=== PATIENT | female | born 1970 | race Caucasian/White ===

== ENCOUNTER → 2018-12-02 | Outpatient (REF) | payer BC | LOC: M LAB LCGH 12:04 | PROVIDERS: ATTEND Obstetrics & Gynecology Obstetrics | DX: Z12.4 Encounter for screening for malignant neoplasm of cervix (principal) ==

== ENCOUNTER 2022-06-05 09:55 | Emergency (ER) | payer BC, OTHER ==
[~2022-06-05] VITALS: Ht 160 cm; Wt 79.5 kg
[2022-06-05] MEDS ORDERED: advil (10:18)
[2022-06-05] MEDS ORDERED: DICL1GEL3 TOP (10:18)
[2022-06-05] MEDS ORDERED: KETOROLAC 30 MG/ML 1ML VIAL IV ONE (14:05)
[2022-06-05 15:09] LABS: BASO # 0.1 10^3/uL (0.0-0.2); BASO % 0.4 % (0.0-1.0); EOS # 0.2 10^3/uL (0.0-0.5); EOS % 1.5 % (0.0-3.0); HEMATOCRIT 40.9 % (36.0-47.0); HEMOGLOBIN 12.9 g/dl (12.0-15.5); LYMPH # 2.2 10^3/uL (1.5-5.0); LYMPH % 18.5 % (24.0-44.0); MEAN CORPUSCULAR HEMOGLOBIN 27.9 pg (27.0-33.0); MEAN CORPUSCULAR HGB CONC 31.5 g/dl (32.0-36.5); MEAN CORPUSCULAR VOLUME 88.3 fl (80.0-96.0); MONO # 0.8 10^3/uL (0.0-0.8); NEUTROPHILS # 8.4 10^3/uL (1.5-8.5); NEUTROPHILS % 72.1 % (36.0-66.0); PLATELET COUNT, AUTOMATED 303 10^3/uL (150-450); RED BLOOD COUNT 4.63 10^6/uL (4.00-5.40); WHITE BLOOD COUNT 11.7 10^3/uL (4.0-10.0)
[2022-06-05] MEDS ORDERED: ISOVUE-370 76% 100ML VIAL As Ordered ONE (15:32)
[2022-06-05] MEDS ORDERED: CYCL-707 PO (16:42)
[2022-06-05] MEDS ORDERED: NAPR-837 PO (16:42)
[2022-06-05] MEDS ORDERED: AMOX875T2 PO (16:42)
[2022-06-05 17:07] VITALS: BP 132/69
== END 2022-06-05 17:06 | disposition home or self-care (01) ==
LOC: M ED 09:55
DX: M54.50 Low back pain, unspecified (principal); R20.2 Paresthesia of skin; W00.0XXA Fall on same level due to ice and snow, initial encounter; K11.20 Sialoadenitis, unspecified; Z79.899 Other long term (current) drug therapy
CPT/HCPCS: 70491; 80047; 85025; 96374; 99284; J1885

== ENCOUNTER → 2023-11-28 | Outpatient (REF) | payer BC ==
[~2023-11-28] MED LIST: AMOX875T2 PO; CYCL-707 PO; DICL100G10 TOP; NAPR-837 PO; advil
[2023-11-30 12:00] LABS: HPV APTIMA Not Detected (Not Detected)
== END ==
LOC: M SFHCWAGY 15:32
PROVIDERS: ATTEND Nurse Practitioner Family
DX: Z12.4 Encounter for screening for malignant neoplasm of cervix (principal)
CPT/HCPCS: 87624; G0123

== ENCOUNTER → 2023-12-03 | Outpatient (CLI) | payer BC | LOC: M WHC 10:14 | PROVIDERS: ATTEND Nurse Practitioner Family | DX: Z12.31 Encounter for screening mammogram for malignant neoplasm of breast (principal) ==

== ENCOUNTER → 2023-12-18 | Outpatient (CLI) | payer BC | LOC: M WHC 12:42 | PROVIDERS: ATTEND Nurse Practitioner Family | DX: Z12.31 Encounter for screening mammogram for malignant neoplasm of breast (principal) ==

== ENCOUNTER 2024-09-01 07:06 | Day surgery (SDC) | payer BC ==
[~2024-09-01] VITALS: Ht 160 cm; Wt 91.4 kg
[~2024-09-01 07:06] MED LIST changes: +CLAR10TA7 PO; +ESTR1DIS5 TOP; +PROG1CAP8 PO
[2024-09-01] MEDS ORDERED: propofoL 200 MG/20 ML VIAL As Ordered ONE (08:41)
[2024-09-01] MEDS ORDERED: LIDOCAINE 2% 100MG/5ML SDV (FOR ANES.) As Ordered ONE (08:41)
[2024-09-01 09:06] VITALS: TEMP 97.5
[2024-09-01 09:28] VITALS: BP 128/60; O2SAT 100
== END 2024-09-01 09:39 | disposition home or self-care (01) ==
LOC: M OPP 07:06
PROVIDERS: ATTEND Internal Medicine Gastroenterology
DX: Z12.11 Encounter for screening for malignant neoplasm of colon (principal); Z12.12 Encounter for screening for malignant neoplasm of rectum; K63.5 Polyp of colon; K57.30 Diverticulosis of large intestine without perforation or abscess without bleeding; K64.0 First degree hemorrhoids; Z79.899 Other long term (current) drug therapy; Z79.3 Long term (current) use of hormonal contraceptives; Z79.890 Hormone replacement therapy; Z88.2 Allergy status to sulfonamides

== ENCOUNTER → 2024-12-18 | Outpatient (REF) | payer BC | LOC: M LAB REF 12:22 | PROVIDERS: ATTEND Obstetrics & Gynecology Obstetrics | DX: R19.7 Diarrhea, unspecified (principal) ==

== ENCOUNTER 2024-12-30 16:43 | Emergency (ER) | payer BC ==
[~2024-12-30] VITALS: Ht 160 cm; Wt 88.8 kg
[2024-12-30 17:45] LABS: BASO # 0.0 10^3/uL (0.0-0.2); BASO % 0.4 % (0.0-1.0); EOS # 0.3 10^3/uL (0.0-0.5); EOS % 2.9 % (0.0-3.0); LYMPH # 2.4 10^3/uL (1.5-5.0); LYMPH % 21.0 % (24.0-44.0); MONO # 0.7 10^3/uL (0.0-0.8); MONO % 6.0 % (2.0-8.0); NEUTROPHILS # 7.8 10^3/uL (1.5-8.5); NEUTROPHILS % 69.2 % (36.0-66.0); PLATELET COUNT, AUTOMATED 280 10^3/uL (150-450)
[2024-12-30 18:00] LABS: INR 0.9
[2024-12-30 18:05] LABS: ALT/SGPT 21 U/L (7.0-40); AST/SGOT 25 U/L (<34); CALCIUM LEVEL 9.3 MG/DL (8.5-10.1); CARBON DIOXIDE LEVEL 28 MMOL/L (20-31); CHLORIDE LEVEL 103 MMOL/L (98-107); CK-MB VALUE MASS 1.3 NG/ML (<3.6); CREATININE FOR GFR 0.63 MG/DL (0.55-1.30); GLOMERULAR FILTRATION RATE > 90.0 (>51); POTASSIUM SERUM 3.8 MMOL/L (3.5-5.1); SODIUM LEVEL 142 MMOL/L (136-145)
[2024-12-30 18:06] LABS: FREE T4 0.99 NG/DL (0.89-1.76)
[2024-12-30 18:11] LABS: CPK CREATINE PHOSPHOKINASE 94 U/L (34-145); MB/CK RELATIVE INDEX 1.38 (< OR =4)
[2024-12-30] MEDS ORDERED: ISOVUE-370 76% 100 ML VIAL As Ordered ONE (18:31)
[2024-12-30] MEDS ORDERED: KETO-204 PO (19:59)
[2024-12-30] MEDS: KETOROLAC 30 MG/ML 1 ML VIAL IV ONE (20:06)
[2024-12-30 20:07] VITALS: BP 125/67; TEMP 98.2; O2SAT 97
[2024-12-30 20:26] LABS: CK-MB VALUE MASS 1.3 NG/ML (<3.6)
[2024-12-30 20:32] LABS: CPK CREATINE PHOSPHOKINASE 76 U/L (34-145); MB/CK RELATIVE INDEX 1.71 (< OR =4)
== END 2024-12-30 20:15 | disposition home or self-care (01) ==
LOC: M ED 16:43
DX: R07.9 Chest pain, unspecified (principal); R94.31 Abnormal electrocardiogram [ECG] [EKG]; K80.20 Calculus of gallbladder without cholecystitis without obstruction; Z88.2 Allergy status to sulfonamides; Z79.2 Long term (current) use of antibiotics; Z79.899 Other long term (current) drug therapy
CPT/HCPCS: 71045; 71275; 80048; 80076; 82550; 82553; 83690; 83880; 84439; 84443; 84484; 85025; 85610; 85730; 93005; 93041; 94760; 96374; 99285; J1885; Q9967

== ENCOUNTER → 2025-01-26 | Outpatient (CLI) | payer BC ==
[~2025-01-26] MED LIST changes: +KETO-204 PO
[2025-01-26 18:41] LABS: ESTIMATED AVERAGE GLUCOSE 114.0 MG/DL (60-110)
== END ==
LOC: M LAB 16:26
PROVIDERS: ATTEND Obstetrics & Gynecology Obstetrics
DX: E11.9 Type 2 diabetes mellitus without complications (principal); E06.3 Autoimmune thyroiditis; R19.7 Diarrhea, unspecified